=== PATIENT | female | born 1935 | race Caucasian/White ===

== ENCOUNTER 2017-03-26 17:56 | Inpatient (IN) | payer MEDICARE, OTHER ==
[~2017-03-26] VITALS: Ht 167.6 cm; Wt 78.3 kg
[~2017-03-26 17:56] MED LIST: ACET325T14 PO; ATEN50TA41 PO; BISA10SU65 PR; BISA5TAB5 PO; DOCU-144 PO; FERR325T18 PO; HYDR-3237 PO; LORA-446 PO; MAGN400O7 PO; MAGN400T26 PO; OMEP20CA9 PO; OXYC10TA47 PO; POLY17PO5 PO; POTASSIUM PO; SENN1TAB7 PO; TEMA15CA6 PO; WARF3TAB PO
[2017-03-26] MEDS ORDERED: SODIUM CHLORIDE FLUSH 10ML SYR IVF ONE (18:30)
[2017-03-26 18:36] LABS: INTERNATIONAL NORMALIZED RATIO 2.04 (0.93-1.1); PROTHROMBIN TIME 20.7 Seconds (9.6-11.5)
[2017-03-26 18:43] LABS: ALBUMIN 3.6 g/dL (3.4-5.0); ANION GAP 10 mmol/L (5-15); CALCIUM 8.2 mg/dL (8.5-10.1); CHLORIDE 110 mmol/L (98-107); MD YES; MEAN CORPUSCULAR HEMOGLOBIN 18.6 pg (27.0-34.8); MEAN CORPUSCULAR VOLUME 64.1 fL (80-100); MEAN PLATELET VOLUME 7.9 fL (7.4-10.4); PLATELET COUNT 163 x10^3/uL (130-400); RED BLOOD COUNT 3.61 x10^6/uL (3.82-5.3); RED CELL DISTRIBUTION WIDTH 19.3 % (9.6-15.2)
[2017-03-26 18:46] LABS: MEAN CORPUSCULAR HGB CONC 29.1 g/dL (32.4-35.8)
[2017-03-26 18:48] LABS: ALANINE AMINOTRANSFERASE 16 U/L (12-78); ALKALINE PHOSPHATASE 69 U/L (45-117); BILIRUBIN,TOTAL 0.3 mg/dL (0.2-1.0); CREATININE 0.69 mg/dL (0.55-1.02); TOTAL PROTEIN 7.4 g/dL (6.4-8.2)
[2017-03-26 18:57] LABS: BASOS#(MANUAL) 0.05 x10^3/uL (0-0.1); BASOS% (MANUAL) 1 % (0-1); LYMPH#(MANUAL) 0.77 x10^3/uL (1-3.4); LYMPHS% (MANUAL) 16 % (22-44); MONOS#(MANUAL) 0.05 x10^3/uL (0.3-2.7); MONOS% (MANUAL) 1 % (2-9); SEG#(MANUAL) 3.94 x10^3/uL (1.8-6.8); SEGS% (MANUAL) 82 % (42-75)
[2017-03-26 18:58] LABS: ANISOCYTOSIS 1+; HYPOCHROMIA 2+; MICROCYTOSIS 1+; OVALOCYTES 1+; POLYCHROMASIA 1+; TARGET CELLS 1+
[2017-03-26 18:59] LABS: <PLATELET ESTIMATE> ADEQUATE; <PLT MORPHOLOGY> NORMAL PLT MORPH
[2017-03-26] MEDS ORDERED: SODIUM CHLORIDE 0.9% 1,000 ML IV SCH (22:16)
[2017-03-26] MEDS ORDERED: hydrALAzine 20 MG/ML, 1ML IVPush PRN (22:30)
[2017-03-26] MEDS ORDERED: ACETAMINOPHEN 325 MG TABLET PO PRN (22:30)
[2017-03-26] MEDS ORDERED: TEMAZEPAM 15 MG CAPSULE PO PRN (22:30)
[2017-03-26] MEDS ORDERED: ONDANSETRON 2MG/ML, 2ML IVPush PRN (22:30)
[2017-03-26 22:42] VITALS: BP 134/76
[2017-03-26 22:56] VITALS: BP 134/76
[2017-03-26 23:02] VITALS: BP 150/73
[2017-03-26 23:16] VITALS: BP 121/74
[2017-03-27] VITALS (7 sets, daily range): BP systolic 123–157; BP diastolic 70–83
[2017-03-27 06:38] LABS: ALBUMIN 3.2 g/dL (3.4-5.0); ANION GAP 9 mmol/L (5-15); CALCIUM 7.8 mg/dL (8.5-10.1); CHLORIDE 110 mmol/L (98-107)
[2017-03-27 06:41] LABS: % IRON SATURATION 12 % (20-55); IRON LEVEL 55 mcg/dL (50-170); TOTAL IRON BINDING CAPACITY 441 mcg/dL (250-450)
[2017-03-27 06:42] LABS: ALANINE AMINOTRANSFERASE 13 U/L (12-78); ALKALINE PHOSPHATASE 60 U/L (45-117); BILIRUBIN,TOTAL 0.9 mg/dL (0.2-1.0); CREATININE 0.59 mg/dL (0.55-1.02); TOTAL PROTEIN 6.7 g/dL (6.4-8.2)
[2017-03-27 07:23] LABS: MD YES
[2017-03-27 07:24] LABS: MEAN CORPUSCULAR HEMOGLOBIN 21.5 pg (27.0-34.8); MEAN CORPUSCULAR HGB CONC 30.9 g/dL (32.4-35.8); MEAN CORPUSCULAR VOLUME 69.7 fL (80-100); MEAN PLATELET VOLUME 8.3 fL (7.4-10.4); PLATELET COUNT 127 x10^3/uL (130-400); RED BLOOD COUNT 4.01 x10^6/uL (3.82-5.3); RED CELL DISTRIBUTION WIDTH 22.7 % (9.6-15.2)
[2017-03-27 07:43] LABS: <PLATELET ESTIMATE> ADEQUATE; <PLT MORPHOLOGY> NORMAL PLT MORPH; ANISOCYTOSIS 1+; HYPOCHROMIA 1+; LYMPH#(MANUAL) 1.13 x10^3/uL (1-3.4); LYMPHS% (MANUAL) 18 % (22-44); MICROCYTOSIS 1+; MONOS#(MANUAL) 0.25 x10^3/uL (0.3-2.7); MONOS% (MANUAL) 4 % (2-9); OVALOCYTES 1+; POLYCHROMASIA 1+; SEG#(MANUAL) 4.91 x10^3/uL (1.8-6.8); SEGS% (MANUAL) 78 % (42-75); TARGET CELLS 1+
[2017-03-27] MEDS ORDERED: POTASSIUM CHLORIDE 20 MEQ TAB.ER.PRT PO SCH (08:00)
[2017-03-27] MEDS ORDERED: OMEPRAZOLE 20 MG CAPSULE.DR PO SCH (09:00)
[2017-03-27] MEDS ORDERED: ATENOLOL 50 MG TABLET PO SCH (09:00)
[2017-03-27] MEDS ORDERED: IRON SUCROSE COMPLEX 100MG/5ML IV SCH (09:00)
[2017-03-27] MEDS ORDERED: PANT40TA3 PO (09:07)
== END 2017-03-27 17:25 | disposition home or self-care (01) | DRG 378 ==
LOC: ED 21:43 → SUATTDRO 22:14 → EDIP 22:15 → 3NW 22:15
PROVIDERS: ADMIT Hospitalist; ATTEND Hospitalist
PROC: 30233N1 Transfusion of Nonautologous Red Blood Cells into Peripheral Vein, Percutaneous Approach (ICD-10-PCS; principal; 2017-03-26)
DX: K92.2 Gastrointestinal hemorrhage, unspecified (principal); D68.69 Other thrombophilia; E11.9 Type 2 diabetes mellitus without complications; D50.9 Iron deficiency anemia, unspecified; E03.9 Hypothyroidism, unspecified; I10 Essential (primary) hypertension; K21.9 Gastro-esophageal reflux disease without esophagitis; K59.00 Constipation, unspecified; Z79.01 Long term (current) use of anticoagulants; Z86.010 Personal history of colon polyps; Z86.718 Personal history of other venous thrombosis and embolism; Z86.73 Personal history of transient ischemic attack (TIA), and cerebral infarction without residual deficits; Z99.3 Dependence on wheelchair; Z88.8 Allergy status to other drugs, medicaments and biological substances
CPT/HCPCS: 36415; 36430; 80053; 83540; 83550; 83735; 84100; 85025; 85610; 86850; 86870; 86900; 86922; 86923; J1756; J7030; P9016

== ENCOUNTER 2018-02-20 20:55 | Emergency (ER) | payer MEDICARE, OTHER ==
[~2018-02-20] VITALS: Ht 165.1 cm; Wt 73.0 kg
[~2018-02-20 20:55] MED LIST changes: +PANT40TA3 PO; -SENN1TAB7 PO; +SENN1TAB8 PO
[2018-02-20 21:10] VITALS: BP 165/83
--- NOTE | 2018-02-20 21:30 | NUR ---
PT TO ED FOR SKIN RASH SINCE NOVEMBER. PINPOINT TO 10CM LESIONS THROUGHOUT BODY. [facility]. FAMILY AT BEDSIDE. CALL LIGHT WITHIN REACH. VSS.
[2018-02-20] MEDS ORDERED: DIPHENHYDRAMINE 50 MG/ML, 1ML ONE (21:49)
[2018-02-20] MEDS ORDERED: DIAZEPAM 5 MG TABLET ONE (21:49)
--- NOTE | 2018-02-20 21:50 | NUR ---
PHARM REQUEST SENT FOR MED.
[2018-02-20] MEDS ORDERED: TRIAMCINOLONE ACETONIDE 40 MG/ML, 1ML IM ONE (22:00)
[2018-02-20] MEDS ORDERED: DIPHENHYDRAMINE 50 MG/ML, 1ML IM ONE (22:00)
[2018-02-20] MEDS ORDERED: DIAZEPAM 5 MG TABLET PO ONE (22:00)
--- NOTE | 2018-02-20 22:30 | NUR ---
PT MEDICATED PER APR. VSS. CALL LIGHT WITHIN REACH. AWAITING RECHECK.
== END 2018-02-20 23:00 | disposition home or self-care (01) ==
LOC: ED 21:53
DX: L20.84 Intrinsic (allergic) eczema (principal); B35.4 Tinea corporis; K21.9 Gastro-esophageal reflux disease without esophagitis; I10 Essential (primary) hypertension; Z86.718 Personal history of other venous thrombosis and embolism
CPT/HCPCS: 96372; 99283; J1200; J3301

== ENCOUNTER 2018-12-31 14:26 | Emergency (ER) | payer MEDICARE, OTHER ==
[~2018-12-31] VITALS: Ht 167.6 cm; Wt 83.5 kg
[~2018-12-31 14:26] MED LIST changes: +SENN-177 PO; -SENN1TAB8 PO
[2018-12-31 14:42] VITALS: BP 178/83
--- NOTE | 2018-12-31 15:12 | NUR ---
PT TO ED FOR 1 EPISODE OF [facility] TODAY. PT STATES HAS HEMORRHOIDS AND ALSO TAKES IRON. PT REFUSING MONITORING EQUIPMENT AND REFUSING TO GET INTO GOWN AND BED. PT STATES SHE "JUST WANTS SOMEONE TO DRAW MY LABS." EDMD AWARE. AWAITILG LAB DRAW.
[2018-12-31 15:37] LABS: BASOPHILS # (AUTO) 0.02 x10^3/uL (0-0.1); BASOPHILS % (AUTO) 0 % (0-1); EOSINOPHILS # (AUTO) 0.09 x10^3/uL (0-0.4); EOSINOPHILS % (AUTO) 1 % (1-7); LYMPHOCYTES # (AUTO) 1.59 x10^3/uL (1-3.4); LYMPHOCYTES % (AUTO) 20 % (22-44); MD NO; MEAN CORPUSCULAR VOLUME 96.8 fL (80-100); MEAN PLATELET VOLUME 7.1 fL (7.4-10.4); MONOCYTES # (AUTO) 0.56 x10^3/uL (0.2-0.8); MONOCYTES % (AUTO) 7 % (2-9); NEUTROPHILS # (AUTO) 5.82 x10^3/uL (1.8-6.8); NEUTROPHILS % (AUTO) 72 % (42-75); PLATELET COUNT 197 x10^3/uL (130-400); RED BLOOD COUNT 4.74 x10^6/uL (3.82-5.3); RED CELL DISTRIBUTION WIDTH 14.1 % (9.6-15.2)
[2018-12-31 15:48] LABS: ALBUMIN 3.6 g/dL (3.4-5.0); ANION GAP 5 mmol/L (5-15); CHLORIDE 110 mmol/L (98-107)
[2018-12-31 15:49] LABS: INTERNATIONAL NORMALIZED RATIO 2.16 (0.93-1.1)
[2018-12-31 15:52] LABS: ALANINE AMINOTRANSFERASE 28 U/L (12-78); ALKALINE PHOSPHATASE 63 U/L (45-117); BILIRUBIN,TOTAL 0.6 mg/dL (0.2-1.0); CREATININE 0.58 mg/dL (0.55-1.02); TOTAL PROTEIN 7.4 g/dL (6.4-8.2)
--- NOTE | 2018-12-31 16:51 | NUR ---
PT'S SON WHO IS DRIVING HOME APPEARS TO BE INTOXICATED. [employer] PROVIDED FOR SAFE DISCHARGE.
== END 2018-12-31 16:58 | disposition home or self-care (01) ==
LOC: ED 16:05
DX: K62.5 Hemorrhage of anus and rectum (principal); I10 Essential (primary) hypertension; E11.9 Type 2 diabetes mellitus without complications; K21.9 Gastro-esophageal reflux disease without esophagitis; F41.1 Generalized anxiety disorder; Z86.718 Personal history of other venous thrombosis and embolism
CPT/HCPCS: 36415; 80053; 85025; 85610; 99283